=== PATIENT | male | born 1990 | race African-American/Black ===

== ENCOUNTER 2024-09-21 14:11 | Emergency (ER) | payer SELFPAY ==
[2024-09-21] MEDS ORDERED: Acetaminophen 500 MG TAB ONE (15:22)
== END 2024-09-21 15:36 | disposition home or self-care (01) ==
LOC: ERS 14:11
DX: S16.1XXA Strain of muscle, fascia and tendon at neck level, initial encounter (principal); S80.11XA Contusion of right lower leg, initial encounter; V54.5XXA Driver of pick-up truck or van injured in collision with heavy transport vehicle or bus in traffic accident, initial encounter; Y93.89 Activity, other specified
CPT/HCPCS: 99283